=== PATIENT | male | born 1960 | race African-American/Black ===

== ENCOUNTER 2019-03-20 17:37 | Emergency (ER) | payer BC, MEDICARE ==
[~2019-03-20] VITALS: Ht 170.2 cm; Wt 85.0 kg
[2019-03-20] MEDS ORDERED: KETOROLAC 60MG/2ML VIAL IM ONE (19:00)
[2019-03-20] MEDS ORDERED: TRAMADOL 50MG TABLET PO ONE (19:00)
[2019-03-20] MEDS ORDERED: MORPHINE SULFATE 4 MG/ML CPJ (NOT FOR IM USE) IV ONE ×2 (20:00→21:00)
[2019-03-20] MEDS ORDERED: ONDANSETRON HCL 4MG/2ML INJ IV ONE (20:00)
[2019-03-20] MEDS ORDERED: CLONIDINE 0.1MG TABLET PO ONE (21:00)
[2019-03-20 22:56] VITALS: BP 140/80
== END 2019-03-20 22:59 | disposition home or self-care (01) ==
LOC: ER 17:37
DX: M79.605 Pain in left leg (principal); M79.604 Pain in right leg; I10 Essential (primary) hypertension; Z98.890 Other specified postprocedural states
CPT/HCPCS: 93970; 96372; 96374; 96375; 99284; J1885; J2270; J2405